=== PATIENT | female | born 1990 | race Caucasian/White ===

== ENCOUNTER 2016-08-10 01:42 | Outpatient (CLI) | payer MEDICAID ==
[~2016-08-10] VITALS: Ht 149.9 cm; Wt 72.7 kg
[~2016-08-10 01:42] MED LIST: PRENATAL
[2016-08-10 02:11] LABS: HEMATOCRIT 37.7 % (37.0-47.0); HEMOGLOBIN 13.1 g/dl (12.5-16.0); MEAN CELL VOLUME 90 fl (80.0-100.0); MEAN CORPUSCULAR HEMOGLOBIN 31 pg (27.0-31.0); MEAN CORPUSCULAR HGB CONC 35 g/dl (33.0-37.0); PLATELET COUNT 346 K/mm3 (130-400); RED BLOOD COUNT 4.17 M/mm3 (4.10-5.30); REDCELL DISTRIBUTION WIDTH-CV 13.2 % (11.5-14.5); WHITE BLOOD COUNT 17.4 K/mm3 (4.8-10.8)
[2016-08-10 02:13] LABS: ADD PATHOLOGY DIFF REVIEW NO
[2016-08-10 02:17] LABS: ADJUSTED CALCIUM 9.7 mg/dL (8.4-10.2); ALBUMIN 3.7 gm/dL (3.5-5.0); BILIRUBIN,TOTAL 0.7 mg/dL (0.0-1.0); CALCIUM 9.5 mg/dL (8.4-10.2); CREATININE, serum 0.45 mg/dL (0.52-1.25); POTASSIUM 4.2 mmol/L (3.4-5.0); TOTAL PROTEIN 7.5 gm/dL (6.4-8.2)
[2016-08-10 02:20] LABS: PH 6 (5-8); SQUAMOUS EPITHELIAL 0-2 /hpf; URINE APPEARANCE Clear; URINE BACTERIA Rare /hpf; URINE BILIRUBIN Negative (NEGATIVE); URINE BLOOD Negative (NEGATIVE); URINE COLOR Straw; URINE GLUCOSE Negative (NEGATIVE); URINE KETONE Negative (NEGATIVE); URINE RBC None Seen /hpf; URINE UROBILINOGEN Negative (NEGATIVE); URINE WBC 0-2 /hpf
[2016-08-10 02:21] LABS: BAND 14 % (0-10); EOSINOPHIL 2 % (0-4); NEUTROPHILS 50 % (42.0-75.2); PLATELET ESTIMATE NORMAL (NORMAL); TOTAL CELLS COUNTED 100
[2016-08-10 02:33] VITALS: BP 132/85; PULSE 90; TEMP 97.7
[2016-08-10] MEDS ORDERED: TYLENOL 325MG325 MG PO (02:39)
[2016-08-10 03:00] VITALS: BP 126/87; PULSE 85
[2016-08-10 03:30] VITALS: BP 129/89; PULSE 84
== END 2016-08-10 04:15 | disposition home or self-care (01) ==
LOC: LDRO 01:42 → COL.ER 01:42 → EDSTATUS 02:05 → LDRO 04:15
PROVIDERS: Emergency Medicine
DX: O26.893 Other specified pregnancy related conditions, third trimester (principal); R51 Headache; O99.333 Smoking (tobacco) complicating pregnancy, third trimester; F17.210 Nicotine dependence, cigarettes, uncomplicated; Z3A.36 36 weeks gestation of pregnancy

== ENCOUNTER 2016-08-11 23:57 | Outpatient (CLI) | payer MEDICAID ==
[~2016-08-11] VITALS: Ht 147.3 cm; Wt 74.5 kg
[~2016-08-11 23:57] MED LIST changes: +TYLENOL 325MG325 MG PO
[2016-08-12 00:20] VITALS: BP 121/80; PULSE 107; TEMP 98.4
[2016-08-12 00:30] VITALS: BP 122/75; PULSE 97
== END 2016-08-12 01:30 | disposition home or self-care (01) ==
LOC: LDRO 23:57
DX: O47.03 False labor before 37 completed weeks of gestation, third trimester (principal); O99.333 Smoking (tobacco) complicating pregnancy, third trimester; F17.210 Nicotine dependence, cigarettes, uncomplicated; Z3A.36 36 weeks gestation of pregnancy

== ENCOUNTER 2016-08-13 15:18 | Inpatient (IN) | payer MEDICAID ==
[~2016-08-13] VITALS: Ht 147.3 cm; Wt 76.4 kg
[2016-08-18] VITALS (19 sets, daily range): BP systolic 98–126; BP diastolic 48–78; PULSE 71–114; TEMP 98–99
[2016-08-18 12:33] LABS: BASO % 0.3 % (0.0-2.0); EOS # 0.2 (0.0-0.7); GRAN # 9.5 (1.4-6.5); GRAN % 61.2 % (42.2-75.2); HEMATOCRIT 39.2 % (37.0-47.0); HEMOGLOBIN 13.5 g/dl (12.5-16.0); LYMPH # 4.3 (1.2-3.4); LYMPH % 27.8 % (20.0-51.0); MEAN CELL VOLUME 90 fl (80.0-100.0); MEAN CORPUSCULAR HEMOGLOBIN 31 pg (27.0-31.0); MEAN CORPUSCULAR HGB CONC 34 g/dl (33.0-37.0); MEAN PLATELET VOLUME 11.3 fl (7.4-10.4); MONO # 1.4 (0.1-0.6); MONO % 9.1 % (1.7-9.3); PLATELET COUNT 309 K/mm3 (130-400); RED BLOOD COUNT 4.34 M/mm3 (4.10-5.30); REDCELL DISTRIBUTION WIDTH-CV 13.5 % (11.5-14.5); WHITE BLOOD COUNT 15.5 K/mm3 (4.8-10.8)
[2016-08-18 12:52] LABS: AMPHETAMINE URINE NEGATIVE; BARBITURATES URINE NEGATIVE; BENZODIAZEPINES URINE NEGATIVE; BUPRENORPHINE URINE NEGATIVE; METHADONE URINE NEGATIVE; OPIATES URINE NEGATIVE; OXYCODONE URINE NEGATIVE; PHENCYCLIDINE URINE NEGATIVE; PROPOXYPHENE URINE NEGATIVE; THC CANNABINOIDS URINE NEGATIVE
[2016-08-19 07:32] VITALS: BP 114/70; PULSE 90; TEMP 98.1
[2016-08-19 15:22] VITALS: BP 121/84; PULSE 122; TEMP 97.4
[2016-08-19 19:50] VITALS: BP 121/78; PULSE 110; TEMP 97.4
[2016-08-20 07:17] VITALS: BP 112/72; PULSE 99; TEMP 97.9
[2016-08-20] MEDS ORDERED: PERCOCET 325 MG1 TA2 PO (07:28)
[2016-08-20] MEDS ORDERED: IBU800 M1 PO (07:28)
[2016-08-20 16:13] VITALS: BP 131/74; PULSE 103; TEMP 97.8
[2016-08-20 20:30] VITALS: BP 107/77; PULSE 108; TEMP 97.4
[2016-08-21 10:00] VITALS: BP 128/83; PULSE 93; TEMP 97.4
[2016-08-21 16:15] VITALS: BP 123/83; PULSE 95; TEMP 97.3
[2016-08-21 20:00] VITALS: BP 133/82; PULSE 102; TEMP 97.9
[2016-08-22 07:31] VITALS: BP 127/83; PULSE 95; TEMP 97.4
== END 2016-08-22 12:30 | disposition home or self-care (01) | DRG 766 ==
LOC: LDR 08-18 11:00 → OB 08-18 11:40 → EDSTATUS 09-08 10:59 → LDRO 09-08 15:18
PROVIDERS: Obstetrics & Gynecology
PROC: 10D00Z1 Extraction of Products of Conception, Low, Open Approach (ICD-10-PCS; principal; 2016-08-18)
DX: O75.82 Onset (spontaneous) of labor after 37 completed weeks of gestation but before 39 completed weeks gestation, with delivery by (planned) cesarean section (principal); O32.1XX0 Maternal care for breech presentation, not applicable or unspecified; O34.211 Maternal care for low transverse scar from previous cesarean delivery; N85.8 Other specified noninflammatory disorders of uterus; Z3A.37 37 weeks gestation of pregnancy; Z37.0 Single live birth
CPT/HCPCS: J0690; J1885; J2250; J2270; J2370; J2405; J2550; J2590; J3010; J7120

== ENCOUNTER 2016-10-09 08:47 | Emergency (ER) | payer MEDICAID ==
[~2016-10-09] VITALS: Ht 147.3 cm; Wt 65.5 kg
[~2016-10-09 08:47] MED LIST changes: +IBU800 M1 PO; +PERCOCET 325 MG1 TA2 PO
[2016-10-09 08:48] VITALS: BP 115/64; PULSE 85; TEMP 97.6
[2016-10-09] MEDS ORDERED: AMOXICILLIN875 MG PO (09:05)
== END 2016-10-09 09:15 | disposition home or self-care (01) ==
LOC: COL.ER 08:47
DX: H65.02 Acute serous otitis media, left ear (principal); F17.210 Nicotine dependence, cigarettes, uncomplicated; J06.9 Acute upper respiratory infection, unspecified

== ENCOUNTER 2017-02-03 11:08 | Emergency (ER) | payer MEDICAID ==
[~2017-02-03] VITALS: Ht 147.3 cm; Wt 68.2 kg
[~2017-02-03 11:08] MED LIST changes: +AMOXICILLIN875 MG PO
[2017-02-03 11:10] VITALS: BP 113/80; PULSE 91; TEMP 97.9
[2017-02-03] MEDS ORDERED: CELEXA40 MG PO (11:12)
[2017-02-03] MEDS ORDERED: BUSPAR 30MG30 MG/TAB PO (11:13)
[2017-02-03] MEDS ORDERED: BACTROBAN22 TOP (11:48)
== END 2017-02-03 11:58 | disposition home or self-care (01) ==
LOC: COL.ER 11:08
DX: R21 Rash and other nonspecific skin eruption (principal); F32.9 Major depressive disorder, single episode, unspecified

== ENCOUNTER 2017-02-23 15:28 | Emergency (ER) | payer MEDICAID ==
[~2017-02-23] VITALS: Ht 152.4 cm; Wt 72.7 kg
[~2017-02-23 15:28] MED LIST changes: +BACTROBAN22 TOP; +BUSPAR 30MG30 MG/TAB PO; +CELEXA40 MG PO
[2017-02-23 15:31] VITALS: BP 125/75; TEMP 98.3
[2017-02-23] MEDS ORDERED: WELLBUTRIN SR150 M1 PO (15:34)
[2017-02-23] MEDS ORDERED: TESSALON P100 MG/CAP PO (16:59)
[2017-02-23 17:05] VITALS: PULSE 82
== END 2017-02-23 17:08 | disposition home or self-care (01) ==
LOC: COL.ER 15:28
DX: J06.9 Acute upper respiratory infection, unspecified (principal); F17.210 Nicotine dependence, cigarettes, uncomplicated

== ENCOUNTER 2017-03-19 14:21 | Emergency (ER) | payer MEDICAID ==
[~2017-03-19] VITALS: Ht 149.9 cm; Wt 70.9 kg
[~2017-03-19 14:21] MED LIST changes: +TESSALON P100 MG/CAP PO; +WELLBUTRIN SR150 M1 PO
[2017-03-19 14:25] VITALS: TEMP 98.1
[2017-03-19] MEDS ORDERED: ULTRAM 50MG TAB50 MG PO (16:44)
[2017-03-19 16:51] VITALS: BP 116/70; PULSE 77
== END 2017-03-19 16:52 | disposition home or self-care (01) ==
LOC: COL.ER 14:21
DX: K08.89 Other specified disorders of teeth and supporting structures (principal)

== ENCOUNTER 2017-04-22 12:43 | Emergency (ER) | payer MEDICAID ==
[~2017-04-22] VITALS: Ht 147.3 cm; Wt 69.8 kg
[~2017-04-22 12:43] MED LIST changes: +ULTRAM 50MG TAB50 MG PO
[2017-04-22 12:48] VITALS: BP 120/69; PULSE 85; TEMP 97.9
== END 2017-04-22 14:17 | disposition left against medical advice (07) ==
LOC: COL.ER 12:43
DX: M79.674 Pain in right toe(s) (principal); M79.675 Pain in left toe(s)

== ENCOUNTER 2017-05-16 09:34 | Emergency (ER) | payer MEDICAID ==
[~2017-05-16] VITALS: Ht 147.3 cm; Wt 70.5 kg
[2017-05-16 09:40] VITALS: BP 119/68; PULSE 78
[2017-05-16] MEDS ORDERED: PEN-VEE K500 MG PO (10:22)
[2017-05-16] MEDS ORDERED: NORCO 325 MG-51 TAB PO (10:22)
[2017-05-16 10:45] VITALS: TEMP 97.5
== END 2017-05-16 10:40 | disposition home or self-care (01) ==
LOC: COL.ER 09:34
DX: K08.89 Other specified disorders of teeth and supporting structures (principal); R12 Heartburn; F41.9 Anxiety disorder, unspecified; F32.9 Major depressive disorder, single episode, unspecified; F17.210 Nicotine dependence, cigarettes, uncomplicated

== ENCOUNTER 2017-06-16 10:55 | Emergency (ER) | payer MEDICAID ==
[~2017-06-16] VITALS: Ht 149.9 cm; Wt 68.2 kg
[~2017-06-16 10:55] MED LIST changes: +NORCO 325 MG-51 TAB PO; +PEN-VEE K500 MG PO
[2017-06-16 10:58] VITALS: BP 144/76; PULSE 114; TEMP 98.1
[2017-06-16] MEDS ORDERED: VALTREX1 GM PO (11:24)
== END 2017-06-16 11:30 | disposition home or self-care (01) ==
LOC: COL.ER 10:55
DX: B00.1 Herpesviral vesicular dermatitis (principal); F17.210 Nicotine dependence, cigarettes, uncomplicated

== ENCOUNTER 2017-09-07 22:31 | Emergency (ER) | payer MEDICAID ==
[~2017-09-07] VITALS: Ht 152.4 cm; Wt 68.2 kg
[~2017-09-07 22:31] MED LIST changes: +VALTREX1 GM PO
[2017-09-07 22:39] VITALS: BP 126/61; PULSE 88; TEMP 97.3
[2017-09-07] MEDS ORDERED: BRINTELLIX10 (22:44)
[2017-09-07] MEDS ORDERED: ATIVAN 1MG T1 MG/TAB PO (22:44)
== END 2017-09-07 23:25 | disposition home or self-care (01) ==
LOC: COL.ER 22:31
DX: H93.8X3 Other specified disorders of ear, bilateral (principal); F32.9 Major depressive disorder, single episode, unspecified; F41.9 Anxiety disorder, unspecified